=== PATIENT | male | born 1985 | race Caucasian/White ===

== ENCOUNTER 2023-07-20 15:21 | Emergency (ER) | payer OTHER ==
[2023-07-20] MEDS ORDERED: TETANUS/DIPHTHERIA/PERTUSSIS 0.5 ML SYRINGE IM ONE (15:31)
[2023-07-20 15:35] VITALS: O2SAT 97
--- NOTE | 2023-07-20 15:43 | ED Physician Documentation ---
PD HPI UPPER EXT INJURY - Stated complaint Stated Complaint: RT FINGER LACERATION - Chief complaint Chief Complaint: Laceration - History obtained from History obtained from: Patient - History of Present Illness Location: Right, Finger (index) Type of injury: Laceration Where injury occurred: Work Timing - onset: How many hours ago (1), Today Timing - duration: Hours (1) Timing - details: Abrupt onset Pain level max: 5 Pain level now: 5 Improved by: Rest, Immobilization Worsened by: Moving, Palpating Associated symptoms: Other (states cannot straighten finger). No: Weakness, Numbness, Tingling, Swelling Contributing factors: No: Anticoagulated, Prior ortho surgery - Additonal information Additional information: Patient is left-handed, unknown last tetanus shot Review of Systems Constitutional: denies: Fever, Chills GI: denies: Vomiting, Diarrhea Skin: denies: Rash Musculoskeletal: denies: Neck pain, Back pain Neurologic: denies: Headache PD PAST MEDICAL HISTORY - Past Medical History Past Medical History: No Cardiovascular: None Respiratory: None Neuro: None Endocrine/Autoimmune: None GI: None : None HEENT: None Psych: None Musculoskeletal: None Derm: None - Past Surgical History Past Surgical History: No - Present Medications Home Medications: Ambulatory Orders Medication Instructions Recorded Confirmed cephALEXin [Keflex] 500 mg PO Q6H #28 cap 07/20/23 - Allergies Allergies/Adverse Reactions: Allergies Allergy/AdvReac Type Severity Reaction Status Date / Time No Known Drug Allergies Allergy Verified 07/20/23 15:24 - Social History Does the pt smoke?: No Smoking Status: Never smoker Does the pt drink ETOH?: Yes Does the pt have substance abuse?: Yes Substance Use and Type: Marijuana - Immunizations Immunizations are current?: No Immunizations: TDAP >10years/unknown PD ED PE NORMAL - Vitals Vital signs reviewed: Yes - General General: Alert and oriented X 3, No acute distress - HEENT HEENT: Moist mucous membranes - Derm Derm: Warm and dry - Extremities Extremities: Other (R hand) - Neuro Neuro: Alert and oriented X 3 - Psych Psych: Normal mood, Normal affect PD ED PE EXPANDED - Extremities LADY UE/Hands Visual: 1 - laceration (3cm curved, NVI.) Results - Vitals Vitals: Vital Signs - 24 hr 07/20/23 07/20/23 15:24 16:59 Temperature 36.7 C Heart Rate 106 H 89 Respiratory 18 18 Rate Blood Pressure 153/99 H 147/87 H O2 Saturation 97 97 Oxygen O2 Source Room air - Rads (name of study) finger xray Relevant Findings:: Final report received, See rad report Procedures - Laceration (location) R index finger Length in cm: 3 Wound type: Curved, Into subcut fat, Clean Neurovascular status: Sensory intact, Motor intact, Vascular intact Tendon involvement: Tendon Injury, Other (unable to extend finger tip) Anesthesia: Lidocaine 1% Wound preparation: Irrigated copiously NS, Wound explored, To the base Skin layer closure: Nylon, Interrupted, Size #-0 - enter number (4) Other: Patient tolerated well, No complications, Neurovascular intact, Dressing applied, Tetanus UTD PD Medical Decision Making - ED course Complexity details: reviewed results, re-evaluated patient, considered differential, d/w patient, d/w family ED course: 37-year-old male with an oblique linear fracture of the second middle phalanx underneath the laceration. Also has an extensor tendon injury. The laceration was repaired. Tolerated well. Placed in a splint in extension of the distal tip of the finger. We will place on antibiotics and have him follow-up with hand surgery early next week for repeat evaluation. Patient is neurovascularly intact. Patient counseled regarding signs and symptoms for which I believe and urgent re-evaluation would be necessary. Patient with good understanding of and agreement to plan and is comfortable going home at this time This document was made in part using voice recognition software. While efforts are made to proofread this document, sound alike and grammatical errors may occur. Departure - Departure Disposition: 01 Home, Self Care Clinical Impression: Finger laceration involving tendon Qualifiers: Encounter type: initial encounter Qualified Code(s): S61.219A - Laceration without foreign body of unspecified finger without damage to nail, initial encounter Finger fracture, right Qualifiers: Encounter type: initial encounter Finger: index finger Fracture type: open Phalanx: middle Fracture alignment: nondisplaced Qualified Code(s): S62.650B - Nondisplaced fracture of middle phalanx of right index finger, initial encounter for open fracture Condition: Good Instructions: ED Laceration Hand, ED Fx Finger Open Follow-Up: [facility] [Provider Group] [facility] [Provider Group] Prescriptions: cephALEXin [Keflex] 500 mg PO Q6H #28 cap Comments: Please follow-up with a hand surgeon for further care. I would recommend that you call one of the 2 groups listed below for an appointment. You do have a laceration through the extensor tendon of your finger. It also appears that you did cut into the bone on 2 views of your x-ray. Please stay in the splint, you can change the dressing as needed when it becomes soiled or dirty. I would recommend changing it at least daily. Take all antibiotics until gone. Your prescription was sent to [facility] in [place]. Forms: PCP List Discharge Date/Time: 07/20/23 17:00
[2023-07-20] MEDS ORDERED: cephALEXin 250 MG CAPSULE PO STA (16:16)
[2023-07-20 17:05] VITALS: BP 147/87
--- NOTE | 2023-07-20 19:24 | XRAY Report ---
PROCEDURE: Finger(s) RT INDICATIONS: finger vs knife TECHNIQUE: AP hand, 3 views of the second finger(s) acquired. COMPARISON: None FINDINGS: Bones: Oblique fracture through the head of the second middle phalanx associated with soft tissue lac eration Soft tissues: No suspicious soft tissue calcifications. IMPRESSION: Oblique linear fracture, second middle phalanx Reviewed by: Raudel Oviedo MD on 07/20/2023 6:23 PM AKDT Approved by: Raudel Oviedo MD on 07/20/2023 6:23 PM AKDT Station ID: [id number]
== END 2023-07-20 17:00 | disposition home or self-care (01) ==
LOC: ED 15:21
DX: S62.650B Nondisplaced fracture of middle phalanx of right index finger, initial encounter for open fracture (principal); W45.8XXA Other foreign body or object entering through skin, initial encounter; Y99.0 Civilian activity done for income or pay; Z23 Encounter for immunization
CPT/HCPCS: 1040M; 12002; 73140; 90471; 90715; 99283; A9270